=== PATIENT | female | born 1950 | race Caucasian/White ===

== ENCOUNTER 2016-09-14 13:44 | Emergency (ER) | payer MEDICARE, OTHER ==
[~2016-09-14] VITALS: Ht 157.5 cm; Wt 97.1 kg
[2016-09-14] MEDS ORDERED: LATA2.5D7 EACHEYE (14:11)
[2016-09-14] MEDS ORDERED: TIMO5SOL11 EACHEYE (14:11)
[2016-09-14] MEDS ORDERED: LYRICA (14:12)
[2016-09-14 14:50] LABS: *BILIRUBIN,URIN NEGATIVE (NEGATIVE); *BLOOD, URINE 3+ (NEGATIVE); *CLARITY,URINE CLOUDY (CLEAR); *COLOR,URINE YELLOW (YELLOW); *KETONES,URINE NEGATIVE (NEGATIVE); *UROBILINOGEN,URINE 0.2 E.U./dl (NORMAL); LEUKOCYTE ESTERASE ,URINE 2+ (NEGATIVE); NITRITE, URINE NEGATIVE (NEGATIVE); PH,URINE 5.5 (5.0-8.0); UGLUCOSE NEGATIVE (NEGATIVE)
[2016-09-14 14:51] LABS: *PROTEIN,URINE 3+ (NEGATIVE)
[2016-09-14 14:58] LABS: BACTERIA,URINE FEW /HPF (NONE SEEN); SQUAMOUS EPITHELIAL CELL,UR FEW /HPF (NONE SEEN); WBC,URINE TNTC /HPF (0-3)
--- NOTE | 2016-09-14 15:12 | NUR ---
PT WAS EVALUATED BY DR ALFARO. PT WAS D/C TO HOME. D/C INSTRUCTIONS GIVEN TO THE PT AND TO HER DOUGHTER.
[2016-09-14 15:13] VITALS: BP 146/88
== END 2016-09-14 15:14 | disposition home or self-care (01) ==
LOC: ER 13:44
DX: N39.0 Urinary tract infection, site not specified (principal); E78.00 Pure hypercholesterolemia, unspecified
CPT/HCPCS: 81001; 87086; 99284; A4663